=== PATIENT | male | born 1990 | race Caucasian/White ===

== ENCOUNTER 2017-02-01 16:09 | Emergency (ER) | payer SELFPAY ==
[2017-02-01 16:19] VITALS: BP 139/89; BMI 33.3
[2017-02-01 16:43] LABS: BILIRUBIN,URINE NEGATIVE (NEGATIVE); BLOOD/HEMOGLOBIN,URINE NEGATIVE (NEGATIVE); GLUCOSE, URINE NEGATIVE (NEGATIVE); KETONES,URINE NEGATIVE (NEGATIVE); LEUKOCYTE ESTERASE ,URINE 1+ (NEGATIVE); NITRITES,URINE NEGATIVE (NEGATIVE); PROTEIN,URINE 2+ (NEGATIVE); UROBILINOGEN,URINE 1+ (NORMAL)
[2017-02-01 16:47] LABS: BASOPHILS # (AUTO) 0.1 X10^3/uL (0.0-0.1); BASOPHILS % (AUTO) 0.7 % (0.2-1.0); EOSINOPHILS # (AUTO) 0.3 x10^3/uL (0.0-0.2); EOSINOPHILS % (AUTO) 2.5 % (0.9-2.9); HEMATOCRIT 50.7 % (42.0-54.0); HEMOGLOBIN 17.7 g/dL (13.5-18.0); LYMPHOCYTES # (AUTO) 2.6 X10^3/uL (1.3-2.9); LYMPHOCYTES % (AUTO) 24.8 % (21.0-51.0); MEAN CORPUSCULAR HEMOGLOBIN 29.5 pg (27.0-34.0); MEAN CORPUSCULAR HGB CONC 34.9 g/dL (33.0-35.0); MEAN CORPUSCULAR VOLUME 84.5 fL (80.0-100.0); MEAN PLATELET VOLUME 7.8 fL (7.4-11.0); MONOCYTES # (AUTO) 0.9 x10^3/uL (0.3-0.8); MONOCYTES % (AUTO) 8.5 % (0.0-13.0); NEUTROPHILS # (AUTO) 6.8 x10^3/uL (2.2-4.8); NEUTROPHILS % (AUTO) 63.5 % (42.0-75.0); PLATELET COUNT 241 X10^3/uL (150.0-450.0); RED CELL DISTRIBUTION WIDTH 12.4 % (11.6-16.5); WHITE BLOOD COUNT 10.7 X10^3/uL (3.6-10.0)
[2017-02-01 16:56] LABS: ALANINE AMINOTRANSFERASE 32 Units/L (12-78); ALBUMIN 4.4 g/dL (3.4-5.0); ALKALINE PHOSPHATASE 49 Units/L (46-116); ASPARTATE AMINO TRANSFERASE 15 Units/L (15-37); BLOOD ALCOHOL < 3 mg/dL (0-19.9); BLOOD UREA NITROGEN 14 mg/dL (7-18); CALCIUM 8.9 mg/dL (8.5-10.1); CARBON DIOXIDE 28.7 mmol/L (21-32); CHLORIDE 102 mmol/L (98-107); COR NA(FOR HYPERGLY) 141 mmol/L (136-145); CREATININE 1.06 mg/dL (0.70-1.30); GLUCOSE 111 mg/dL (65-99); SODIUM 141 mmol/L (136-145); TOTAL PROTEIN 8.5 g/dL (6.4-8.2); eGFR BLACK RACES > 60 (>60); eGFR NON BLACK RACES > 60 (>60)
[2017-02-01 17:05] LABS: SALICYLATE < 2.8 mg/dL (2.8-20)
[2017-02-01 17:06] LABS: APPEARANCE,URINE SLIGHTLY HAZY (CLEAR); COLOR,URINE AMBER (YELLOW); RBC,URINE NEGATIVE /HPF (NEGATIVE)
[2017-02-01 17:07] LABS: BACTERIA,URINE NEGATIVE /HPF (NEGATIVE); SQUAMOUS EPITHELIAL CELL,UR RARE /HPF (NEGATIVE)
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
== END 2017-02-01 19:43 | disposition home or self-care (01) ==
LOC: ER 16:25
DX: F32.89 Other specified depressive episodes (principal); F43.23 Adjustment disorder with mixed anxiety and depressed mood
CPT/HCPCS: 36415; 80053; 80307; 80320; 81001; 85025; 93005; 93010; 99283; 99285; G0434; G6038; G6039; G6040

== ENCOUNTER 2018-03-30 14:02 | Emergency (ER) | payer OTHER ==
[2018-03-30 14:07] VITALS: BP 134/86; BMI 34.5
--- NOTE | 2018-03-30 15:02 | DR.ABDMALE ---
HPI - Time seen Time seen: 14:55 - PCP Primary Care Physician: NFD - Complaint Chief Complaint Doctors Comments: He's had nausea and diahearr since like 2100 hrs. last night. He's had no fever or chills, he's not travelled outside of this general area. He denies having consumed poorly prepared or raw food items. He has gone from both ends of his body numerous times he states. 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 Chief Complaint:: PT C/O NAUSEA, DIARRHEA AND LT SHOULDER PAIN. PT STATES HE STARTED FEELING BAD YESTERDAY. PT STATES HE HAS HAD X 10 STOOLS SINCE MIDNIGHT LAST NIGHT - Reviewed Nurses Notes Review: Yes - Mode of arrival Mode of Arrival: Ambulatory - Timing Onset of Chief Complaint: 03/29/18 PMH - PMH Past Medical History: No Past Surgical History: Yes Past Surgical History Comment: NOSE SURGERY - Family History History of Family Medical Conditions: Yes Family Medical History: Cancer, Coronary Artery Disease - Social History Does patient currently use any type of tobacco product: Yes Have you used tobacco products in the last 12 months: Yes Type of Tobacco Use: Cigarettes Does any household member use tobacco: Yes Alcohol Use: None Do you use any recreational Drugs:: No Lives With: Family Lives Where: Home - infectious screening In the last 2 months have you had wt loss of >10#?: NO Have you had fever, night sweats or hemotysis?: No Have you traveled outside the country in the last 6 months?: No Isolation: Standard ROS - Review of Systems Constitutional: No Symptoms Reported Eyes: No Symptoms Reported ENTM: No Symptoms Reported Respiratoy: No Symptoms Reported Cardiovascular: No Symptoms Reported Gastrointestinal/Abdominal: Diarrhea, Nausea, Vomiting Genitourinary: No Symptoms Reported Neurological: No Symptoms Reported Musculoskeletal: Shoulder (pain, bilaterally.) Integumentary: No Symptoms Reported Hematologic/Lymphatic: No Symptoms Reported Endocrine: No Symptoms Reported Psychiatric: No Symptoms Reported All Other Systems: Reviewed and Negative PE - Vital Signs Vital Signs: Temp Pulse Resp BP Pulse Ox 03/30/18 14:04 98.2 F 93 H 20 134/86 97 02/01/17 16:11 139/89 - General Limitations: No Limitations General Appearance: Alert, In No Apparent Distress - Head Head Exam: Normal Inspection - Eyes Eye exam: Normal Appearance - ENT ENT Exam: Normal Exam - Neck Neck Exam: Normal Inspection, Full ROM - Chest Chest Inspection: Normal Inspection, Symmetric Chest Wall Rise - Respiratory Respiratory Exam: Normal Lung Sounds Bilat - Cardiovascular Cardiovascular Exam: Regular Rate, Normal Rhythm, Normal Heart Sounds, +S1, +S2 - Abdominal Exam Abdominal Exam: Normal Inspection, Normal Bowel Sounds, Soft - Rectal Rectal Exam: Deferred - Back Back Exam: Normal Inspection - Extremeties Extremities Exam: Normal Inspection - Exam: Male: Deferred - Neurologic Neurological Exam: Alert, Oriented X3 - Psychiatric Psychiatric Exam: Normal Affect, Normal Mood - Skin Skin Exam: Warm, Dry, Intact, Normal Color Course - Reevaluation 1st: Improved 2nd: Improved - Education/Counseling Education/Counseling: Patient, Family, Education, Counseling Educated On: Treatment, Diagnosis, Prognosis, Needs for Follow Up ROR - Labs Reviewed Result Diagrams: 03/30/18 15:18 03/30/18 15:18 Laboratory: WBC 9.8 X10^3/uL (3.6-10.0) 03/30/18 15:18 RBC 5.78 X10^6/uL (4.7-6.0) 03/30/18 15:18 Hgb 17.0 g/dL (13.5-18.0) 03/30/18 15:18 Hct 48.2 % (42.0-54.0) 03/30/18 15:18 MCV 83.5 fL (80.0-100.0) 03/30/18 15:18 MCH 29.4 pg (27.0-34.0) 03/30/18 15:18 MCHC 35.2 g/dL (33.0-35.0) H 03/30/18 15:18 RDW 12.3 % (11.6-16.5) 03/30/18 15:18 Plt Count 228 X10^3/uL (150.0-450.0) 03/30/18 15:18 MPV 8.2 fL (7.4-11.0) 03/30/18 15:18 Neut % (Auto) 55.2 % (42.0-75.0) 03/30/18 15:18 Lymph % (Auto) 30.8 % (21.0-51.0) 03/30/18 15:18 [place] % (Auto) 8.8 % (0.0-13.0) 03/30/18 15:18 Eos % (Auto) 4.3 % (0.9-2.9) H 03/30/18 15:18 Baso % (Auto) 0.9 % (0.2-1.0) 03/30/18 15:18 Neut # (Auto) 5.4 x10^3/uL (2.2-4.8) H 03/30/18 15:18 Lymph # (Auto) 3.0 X10^3/uL (1.3-2.9) H 03/30/18 15:18 [place] # (Auto) 0.9 x10^3/uL (0.3-0.8) H 03/30/18 15:18 Eos # (Auto) 0.4 x10^3/uL (0.0-0.2) H 03/30/18 15:18 Baso # (Auto) 0.1 X10^3/uL (0.0-0.1) 03/30/18 15:18 Absolute Nucleated RBC 0.0 /100WBC 03/30/18 15:18 Sodium 138 mmol/L (136-145) 03/30/18 15:18 Corrected Sodium TNP 03/30/18 15:18 Potassium 4.1 mmol/L (3.5-5.1) 03/30/18 15:18 Chloride 101 mmol/L (98-107) 03/30/18 15:18 Carbon Dioxide 28.7 mmol/L (21-32) 03/30/18 15:18 BUN 11 mg/dL (7-18) 03/30/18 15:18 Creatinine 0.98 mg/dL (0.70-1.30) 03/30/18 15:18 Est GFR (MDRD) Af Amer > 60 (>60) 03/30/18 15:18 Est GFR (MDRD) Non-Af > 60 (>60) 03/30/18 15:18 Glucose 97 mg/dL (65-99) 03/30/18 15:18 Calcium 8.6 mg/dL (8.5-10.1) 03/30/18 15:18 Corrected Calcium TNP 03/30/18 15:18 Total Bilirubin 0.80 mg/dL (0.2-1.0) 03/30/18 15:18 AST 20 Units/L (15-37) 03/30/18 15:18 ALT 45 Units/L (12-78) 03/30/18 15:18 Alkaline Phosphatase 58 Units/L (46-116) 03/30/18 15:18 Total Protein 8.2 g/dL (6.4-8.2) 03/30/18 15:18 Albumin 4.1 g/dL (3.4-5.0) 03/30/18 15:18 Globulin 4.1 g/dL (2.5-4.5) 03/30/18 15:18 Albumin/Globulin Ratio 1.0 Ratio (1.1-2.1) L 03/30/18 15:18 Amylase 28 Units/L (25-115) 03/30/18 15:18 Lipase 63 Units/L (73-393) L 03/30/18 15:18 - Diagnosis Discharge Problem: Gastroenteritis - Discharge Plan Disposition: 01 HOME, SELF-CARE Condition: Stable - Follow ups/Referrals Follow ups/Referrals: NFD,None [Primary Care Provider] - 3 days - Instructions Instructions: Viral Gastroenteritis, Adult, [id number]
[2018-03-30] MEDS ORDERED: NS 1000 ML 1,000 ML IV ONE (15:03)
[2018-03-30] MEDS ORDERED: NS 1000 ML 1,000 ML ONE (15:07)
[2018-03-30 15:30] LABS: BASOPHILS # (AUTO) 0.1 X10^3/uL (0.0-0.1); BASOPHILS % (AUTO) 0.9 % (0.2-1.0); EOSINOPHILS # (AUTO) 0.4 x10^3/uL (0.0-0.2); EOSINOPHILS % (AUTO) 4.3 % (0.9-2.9); HEMATOCRIT 48.2 % (42.0-54.0); LYMPHOCYTES % (AUTO) 30.8 % (21.0-51.0); MEAN CORPUSCULAR HEMOGLOBIN 29.4 pg (27.0-34.0); MEAN CORPUSCULAR HGB CONC 35.2 g/dL (33.0-35.0); MEAN CORPUSCULAR VOLUME 83.5 fL (80.0-100.0); MEAN PLATELET VOLUME 8.2 fL (7.4-11.0); MONOCYTES # (AUTO) 0.9 x10^3/uL (0.3-0.8); MONOCYTES % (AUTO) 8.8 % (0.0-13.0); NEUTROPHILS # (AUTO) 5.4 x10^3/uL (2.2-4.8); NEUTROPHILS % (AUTO) 55.2 % (42.0-75.0); PLATELET COUNT 228 X10^3/uL (150.0-450.0); RED BLOOD COUNT 5.78 X10^6/uL (4.7-6.0); RED CELL DISTRIBUTION WIDTH 12.3 % (11.6-16.5); WHITE BLOOD COUNT 9.8 X10^3/uL (3.6-10.0)
[2018-03-30 15:51] LABS: ALANINE AMINOTRANSFERASE 45 Units/L (12-78); ALBUMIN 4.1 g/dL (3.4-5.0); ALKALINE PHOSPHATASE 58 Units/L (46-116); AMYLASE 28 Units/L (25-115); ASPARTATE AMINO TRANSFERASE 20 Units/L (15-37); BLOOD UREA NITROGEN 11 mg/dL (7-18); CALCIUM 8.6 mg/dL (8.5-10.1); CARBON DIOXIDE 28.7 mmol/L (21-32); CHLORIDE 101 mmol/L (98-107); CREATININE 0.98 mg/dL (0.70-1.30); LIPASE 63 Units/L (73-393); SODIUM 138 mmol/L (136-145); TOTAL PROTEIN 8.2 g/dL (6.4-8.2); eGFR BLACK RACES > 60 (>60); eGFR NON BLACK RACES > 60 (>60)
[2018-03-30] MEDS ORDERED: TORADOL 30 MG VIAL IVP ONE (16:27)
[2018-03-30] MEDS ORDERED: PHENERGAN INJ 25 MG IV ONE (16:27)
[2018-03-30] MEDS ORDERED: TORADOL 30 MG VIAL ONE (16:30)
[2018-03-30] MEDS ORDERED: PHENERGAN INJ 25 MG ONE (16:30)
== END 2018-03-30 17:03 | disposition home or self-care (01) ==
LOC: ER 14:40
DX: K52.89 Other specified noninfective gastroenteritis and colitis (principal)
CPT/HCPCS: 36415; 80053; 82150; 83690; 85025; 96365; 96374; 96375; 99282; 99283; A4222; J1885; J2550